=== PATIENT | female | born 1995 | race Two or more races ===

== ENCOUNTER 2018-11-06 12:55 | Outpatient (CLI) | payer OTHER ==
[~2018-11-06 12:55] MED LIST: INTESTINEX1 CAP PO
== END 2018-11-06 12:59 | disposition home or self-care (01) ==
LOC: SONOGRAMA 12:55
DX: E03.8 Other specified hypothyroidism (principal); E04.8 Other specified nontoxic goiter

== ENCOUNTER 2019-06-10 10:26 | Outpatient (CLI) | payer OTHER | END 2019-06-10 13:07 | disposition home or self-care (01) | LOC: SONOGRAMA 10:26 | DX: E04.8 Other specified nontoxic goiter (principal) ==

== ENCOUNTER 2021-09-24 15:32 | Emergency (ER) | payer OTHER ==
[~2021-09-24] VITALS: Ht 167.6 cm; Wt 53.1 kg
== END 2021-09-24 20:09 | disposition home or self-care (01) ==
LOC: ER 15:32
DX: S49.82XA Other specified injuries of left shoulder and upper arm, initial encounter (principal); S49.81XA Other specified injuries of right shoulder and upper arm, initial encounter; V49.88XA Car occupant (driver) (passenger) injured in other specified transport accidents, initial encounter; Y93.89 Activity, other specified; Y92.411 Interstate highway as the place of occurrence of the external cause; Y99.8 Other external cause status

== ENCOUNTER 2022-07-23 03:58 | Emergency (ER) | payer OTHER | END 2022-07-23 10:31 | disposition home or self-care (01) | LOC: ER 03:58 | DX: R55 Syncope and collapse (principal); S09.90XA Unspecified injury of head, initial encounter; W19.XXXA Unspecified fall, initial encounter; Y93.89 Activity, other specified; Y92.89 Other specified places as the place of occurrence of the external cause; Y99.9 Unspecified external cause status; F10.10 Alcohol abuse, uncomplicated; F12.10 Cannabis abuse, uncomplicated; Z88.6 Allergy status to analgesic agent ==